=== PATIENT | female | born 1965 | race African-American/Black ===

== ENCOUNTER 2017-02-16 10:39 | Emergency (ER) | payer BC, OTHER ==
--- NOTE | 2017-02-16 11:22 | ER Document Report ---
ED Medical Screen (RME) - General Chief Complaint: Anxiety Stated Complaint: BP PROBLEMS Time Seen by Provider: 02/16/17 11:07 Mode of Arrival: Ambulatory Information source: Patient Notes: This 51-year-old female patient comes emergency room complaining of increased stress, cannot sleep, has run out of her blood pressure medication and cholesterol medication. She reports her spouse wants out of their 28 year marriage, she has apparent in the long-term she helps care for. She does not have a primary care provider, gets her prescriptions at [facility] and an urgent care in [place]. I have greeted and performed a rapid initial assessment of this patient. A comprehensive ED assessment and evaluation of the patient, analysis of test results and completion of the medical decision making process will be conducted by additional ED providers. TRAVEL OUTSIDE OF THE [place] IN LAST 30 DAYS: No - Related Data Allergies/Adverse Reactions: Penicillins Allergy (Verified 02/16/17 10:59) Past Medical History - Social History Chew tobacco use (# tins/day): No Frequency of alcohol use: None Drug Abuse: None - Past Medical History Cardiac Medical History: Reports: Hx Hypercholesterolemia, Hx Hypertension Renal/ Medical History: Denies: Hx Peritoneal Dialysis Past Surgical History: Reports: Hx Hysterectomy - Immunizations Hx Diphtheria, Pertussis, Tetanus Vaccination: Yes Physical Exam - Vital signs Vitals: Temp Pulse Resp BP Pulse Ox 98.4 F 116 H 16 182/103 H 100 02/16/17 10:41 02/16/17 10:41 02/16/17 10:41 02/16/17 10:41 02/16/17 10:41 Course - Vital Signs Vital signs: Temp Pulse Resp BP Pulse Ox 98.4 F 116 H 16 182/103 H 100 02/16/17 10:41 02/16/17 10:41 02/16/17 11:00 02/16/17 10:41 02/16/17 10:41 Doctor's Discharge - Discharge Instructions: Anxiety ([facility])
[2017-02-16] MEDS ORDERED: HYDROCHLOROTHIAZIDE 12.5 MG CAPSULE PO ONE (11:55)
[2017-02-16] MEDS ORDERED: LISINOPRIL 10 MG TABLET PO ONE (11:55)
[2017-02-16 12:15] LABS: APPEARANCE,URINE CLEAR; BILIRUBIN,URINE NEGATIVE (NEGATIVE); GLUCOSE, URINE NEGATIVE (NEGATIVE); KETONES,URINE NEGATIVE (NEGATIVE); LEUKOCYTE ESTERASE,URINE NEGATIVE (NEGATIVE); NITRITE,URINE NEGATIVE (NEGATIVE); PROTEIN,URINE NEGATIVE (NEGATIVE); URINE SPECIFIC GRAVITY 1.005; UROBILINOGEN,URINE NEGATIVE mg/dL (<2.0)
[2017-02-16 12:16] LABS: ABSOLUTE BASOPHILS # (AUTO) 0.1 10^3/uL (0.0-0.2); ABSOLUTE EOSINOPHILS # (AUTO) 0.1 10^3/uL (0.0-0.6); ABSOLUTE LYMPHOCYTES (AUTO) 2.1 10^3/uL (0.5-4.7); ABSOLUTE MONOCYTES (AUTO) 0.5 10^3/uL (0.1-1.4); ABSOLUTE NEUT (AUTO) 6.5 10^3/uL (1.7-8.2); BASOPHILS % (AUTO) 0.7 % (0-2); EOSINOPHILS % (AUTO) 1.1 % (0-6); HEMATOCRIT 46.2 % (36.0-47.0); HEMOGLOBIN 15.4 g/dL (12.0-15.5); LYMPHOCYTES % (AUTO) 22.8 % (13-45); MEAN CORPUSCULAR HEMOGLOBIN 30.2 pg (27.0-33.4); MEAN CORPUSCULAR HGB CONC 33.2 g/dL (32.0-36.0); MEAN CORPUSCULAR VOLUME 91 fl (80-97); MONOCYTES % (AUTO) 5.1 % (3-13); RED BLOOD COUNT 5.08 10^6/uL (3.72-5.28); RED CELL DISTRIBUTION WIDTH 13.7 % (11.5-14.0); SEGMENTED NEUTROPHILS % (AUTO) 70.3 % (42-78); WHITE BLOOD COUNT 9.3 10^3/uL (4.0-10.5)
[2017-02-16 12:33] LABS: ALANINE AMINOTRANSFERASE 25 U/L (9-52); ALBUMIN 4.8 g/dL (3.5-5.0); ALKALINE PHOSPHATASE 66 U/L (38-126); ANION GAP 10 (5-19); ASPARTATE AMINO TRANSFERASE 22 U/L (14-36); BILIRUBIN,DIRECT 0.4 mg/dL (0.0-0.4); BLOOD UREA NITROGEN 5 mg/dL (7-20); CALCIUM 10.4 mg/dL (8.4-10.2); CARBON DIOXIDE 27 mmol/L (22-30); CHLORIDE 104 mmol/L (98-107); CREATININE RESULT 0.66 mg/dL (0.52-1.25); GLUCOSE 97 mg/dL (75-110); POTASSIUM 4.1 mmol/L (3.6-5.0); SODIUM 141.4 mmol/L (137-145)
--- NOTE | 2017-02-16 13:17 | ER Document Report ---
ED Psych Disorder / Suicide - General Chief Complaint: Anxiety Stated Complaint: BP PROBLEMS Time Seen by Provider: 02/16/17 11:07 Mode of Arrival: Ambulatory Information source: Patient Notes: This is a 51-year-old female who presents to the ER today for elevated blood pressure today, she has not taken her blood pressure medication today because she is out of them and has no refills. She also presents for stress and anxiety. Patient states that her relationship with her significant other for the past 28 years is now not working out, she states that he will not listen to her when she wants to talk about the relationship and states out until 1 or 2:00 in the morning. She says that she cannot sleep because when he comes home there is tension and she has to get up at 5 AM. She also states that her father just got placed in a shelter and she is having to take care of all of his affairs which is very overwhelming for her. She has no history of anxiety or depression takes no medications for these things. She also states that her sex drive is much lower than normal and she is afraid that this is what is contributing to her relationship failure with her significant other. She denies suicidal or homicidal ideations. TRAVEL OUTSIDE OF THE [place] IN LAST 30 DAYS: No - Related Data Allergies/Adverse Reactions: Penicillins Allergy (Verified 02/16/17 10:59) Past Medical History - General Information source: Patient - Social History Smoking Status: Current Every Day Smoker Chew tobacco use (# tins/day): No Frequency of alcohol use: None Drug Abuse: None Family History: Reviewed & Not Pertinent Patient has suicidal ideation: No Patient has homicidal ideation: No - Past Medical History Cardiac Medical History: Reports: Hx Hypercholesterolemia, Hx Hypertension Renal/ Medical History: Denies: Hx Peritoneal Dialysis Past Surgical History: Reports: Hx Hysterectomy - Immunizations Hx Diphtheria, Pertussis, Tetanus Vaccination: Yes Review of Systems - Review of Systems Constitutional: No symptoms reported EENT: No symptoms reported Cardiovascular: See HPI Respiratory: No symptoms reported Gastrointestinal: No symptoms reported Genitourinary: No symptoms reported Female Genitourinary: No symptoms reported Musculoskeletal: No symptoms reported Skin: No symptoms reported Hematologic/Lymphatic: No symptoms reported Neurological/Psychological: See HPI Physical Exam - Vital signs Vitals: Temp Pulse Resp BP Pulse Ox 98.4 F 116 H 16 182/103 H 100 02/16/17 10:41 02/16/17 10:41 02/16/17 10:41 02/16/17 10:41 02/16/17 10:41 - Notes Notes: PHYSICAL EXAMINATION: GENERAL: Sad, tearful, but in no acute distress. HEAD: Atraumatic, normocephalic. EYES: Pupils equal round and reactive to light, extraocular movements intact, sclera anicteric, conjunctiva are normal. NECK: Normal range of motion, supple without lymphadenopathy LUNGS: CTAB and equal. No wheezes rales or rhonchi. HEART: Regular rate and rhythm without murmurs EXTREMITIES: Normal range of motion, no pitting edema. No cyanosis. NEUROLOGICAL: Cranial nerves grossly intact. Normal sensory/motor exams. PSYCH: Sad, tearful, flat affect SKIN: Warm, Dry, normal turgor, no rashes or lesions noted Course - Re-evaluation Re-evalutation: 02/16/17 13:18 pt had psych come talk to her and give her resources for therapy/mental health professionals. She denies suicidal or homicidal ideations. her blood pressure reduced to 130/80s after her prescribed dose of lisinopril-hctz. I will refill this for her. 02/16/17 17:40 02/16/17 17:40 02/16/17 17:41 - Vital Signs Vital signs: Temp Pulse Resp BP Pulse Ox 98.4 F 88 18 136/88 H 100 02/16/17 10:41 02/16/17 13:28 02/16/17 13:28 02/16/17 13:28 02/16/17 13:28 - Laboratory Result Diagrams: 02/16/17 11:30 02/16/17 11:30 Laboratory results interpreted by me: 02/16/17 11:30 BUN 5 L Calcium 10.4 H Discharge - Discharge Clinical Impression: Feeling of sadness HTN (hypertension) Qualifiers: Hypertension type: essential hypertension Qualified Code(s): I10 - Essential ( primary) hypertension Condition: Stable Disposition: HOME, SELF-CARE Instructions: Anxiety ([facility]) Additional Instructions: Your blood pressure medication, it did work for you today. Return immediately for any new or worsening symptoms. Follow up with primary care provider, call tomorrow to make followup appointment. Prescriptions: Lisinopril/Hydrochlorothiazide [Lisinopril-Hctz 20-12.5 mg Tab] 1 each PO DAILY #30 tablet Forms: Return to Work
[2017-02-16 13:28] VITALS: BP 136/88
== END 2017-02-16 14:20 | disposition home or self-care (01) ==
LOC: ER 10:39
DX: I10 Essential (primary) hypertension (principal); T46.4X6A Underdosing of angiotensin-converting-enzyme inhibitors, initial encounter; Z91.14 Patient's other noncompliance with medication regimen; F41.9 Anxiety disorder, unspecified; R45.89 Other symptoms and signs involving emotional state; F17.200 Nicotine dependence, unspecified, uncomplicated; Z88.0 Allergy status to penicillin
CPT/HCPCS: 36415; 80053; 81001; 85025; 99283